=== PATIENT | female | born 1995 | race Caucasian/White ===

== ENCOUNTER 2024-08-28 14:37 | Outpatient (CLI) | payer OTHER, SELFPAY ==
--- NOTE | ~2024-08-28 | US_ITS ---
EXAMINATION: US OB <=14 wk fetus w TV DATE: 08/28/2024 15:49 INDICATION: with inconclusive viability TECHNIQUE: Real-time pelvic ultrasound utilizing both a transvaginal and transabdominal probe was pe rformed. The interpreting radiologist was not present for the study. COMPARISON: None. FINDINGS: The uterus measures 12.0 x 6.6 x 8.8 cm. There is an intrauterine gestational sac. A yolk sac and fe tommy pole are identified. The crown rump length measures 3.2 cm, which correlates with an estimated ge stational age of 9 weeks and 3 days. heart motion is identified measuring 155 beats per minute (bpm) by M-mode Doppler. The right ovary is not visualized. Left ovary measures 5.4 x 3.5 cm and contains a 4.2 x 3.9 x 2.4 cm complex cyst with weblike pattern of multiple thin internal septations with appearance favoring a he morrhagic cyst. Vascular flow identified in the left ovary on color Doppler. There is no free fluid i n the pelvis. IMPRESSION: 1. Single living fetus with heart rate of 155 bpm. 2. Gestational age by ultrasound of 9 weeks 4 day(s) +/- 6 day(s) with ultrasound estimated date of delivery ([facility]) of 03/29/2025. 3. 4.2 cm complex cystic lesion at the left ovary with appearance most suggestive of a hemorrhagic cy st. Recommend follow-up ultrasound in 6-12 weeks. Reviewed, dictated and finalized at location A. ING SUPERVISOR IMPRESSION: 1. Single living fetus with heart rate of 155 bpm. 2. Gestational age by ultrasound of 9 weeks 4 day(s) +/- 6 day(s) with ultraso und estimated date of delivery ([facility]) of 03/29/2025. 3. 4.2 cm complex cystic lesion at the left ovary with appearance most suggesti ve of a hemorrhagic cyst. Recommend follow-up ultrasound in 6-12 weeks.
== END 2024-08-28 14:38 | disposition home or self-care (01) ==
PROVIDERS: Visit Provider Obstetrics & Gynecology Gynecology
DX: O36.80X0 Pregnancy with inconclusive fetal viability, not applicable or unspecified (principal); Z3A.09 9 weeks gestation of pregnancy
CPT/HCPCS: 76801; 76817

== ENCOUNTER 2024-10-31 14:51 | Outpatient (CLI) | payer OTHER, SELFPAY ==
--- NOTE | ~2024-10-31 | US_ITS ---
US pelvic limited Ordering provider: Porsha Pryor MD History: . ovarian cyst . Comparison: September 05, 2024 Technique: Transabdominal and endovaginal ultrasound of the pelvis (Doppler ultrasound interrogation techniques used as needed for this exam.) FINDINGS/impression: LEFT OVARY: Normal in size measuring 3.4 x 3.4 x 3.6 cm. Normal echotexture. Doppler vascular flow pr esent. Septated left ovarian cyst is again demonstrated measuring 2 x 2.9 x 3 cm. Follow-up advised. Reviewed, dictated and finalized at location A.
== END 2024-10-31 14:52 | disposition home or self-care (01) ==
PROVIDERS: Visit Provider Obstetrics & Gynecology Gynecology
DX: N83.202 Unspecified ovarian cyst, left side (principal)
CPT/HCPCS: 76857

== ENCOUNTER 2024-11-21 14:50 | Outpatient (CLI) | payer OTHER, SELFPAY ==
--- NOTE | ~2024-11-21 | US_ITS ---
EXAMINATION: US OB /maternal detail DATE: 11/23/2024 17:50 CDT INDICATION: Anatomy screen TECHNIQUE: Real-time transabdominal obstetric ultrasound. FINDINGS: 1 para 0. There is a single intrauterine gestation in variable presentation. The placenta is anterior, with its tip measuring approximately 3.1 cm from the cervix. The cervix measures 4.3 cm in length. cardiac activity and movement is noted with a heart rate of 159 beats per minute. Anatomic parameters are as follows The bladder is visualized and is unremarkable. A three-vessel cord is present. Cord insertion is demonstrated to be on the midline on the submitted images. Bilateral kidneys are present without hydronephrosis. The anterior and posterior margins of the diaphragm is continuous. The cervical, thoracic and lumbar spines are covered in their entirety. choroid plexi are visualized, and unremarkable. Lateral ventricles are visualized. The falx is visualized. Static views of the posterior cranial fossa are limited for which follow-up is suggested. Cine of the four-chamber heart is visualized and is anatomic. Both the right and left ventricular outflow tracts are identified and are unremarkable. Views of the arms, hands, legs and feet were performed and appear grossly unremarkable. Views of the upper lip and nose confirmed their continuity. Deepest vertical pocket measures 4.3 cm The following biometric data were obtained: Biparietal diameter (BPD): 5.7 cm; head circumference (HC): 19.5 cm; abdominal circumference (AC): 16.9 cm; femur length (FL): 3.7 cm. These measurements are concordant. Estimated weight is 453 g +/- 67.9 g, which correlates with the 49th percentile when 03/26/2025 is used as estimated date of delivery. As single measurements, these parameters are each equal to the following estimated gestational ages: BPD: 23 weeks 3 days. HC: 21 weeks 5 days. AC: 21 weeks 6 days. FL: 21 weeks 4 days. estimated gestational age based solely on measurements from this exam is 22 weeks 1 day +/- 1 w [place] 4 days. IMPRESSION: Single intrauterine gestation with an approximate gestational age of 22 weeks and 1 day. Estimated due date by ultrasound is 03/26/2025. Static views of the posterior cranial fossa are limited for which follow-up is suggested. Remainder of the anatomy scan is within normal limits, as detailed above. Reviewed, dictated and finalized at location A. IMPRESSION: Single intrauterine gestation with an approximate gestational age of 22 weeks a nd 1 day. Estimated due date by ultrasound is 03/26/2025. Static views of the posterior cranial fossa are limited for which follow-up is suggested. Remainder of the anatomy scan is within normal limits, as detailed above.
--- OUTSIDE RECORDS SUMMARY | 2024-11-21 15:06 | XMS_ITS | Clinical Summary ---
Author Organization [facility] craven [facility] Address [address] [place] [address] Care Team Providers Care Polymer Tester Name Role Phone Unavailable Primary Care Provider Unavailabl e Social History Tobacco Use Types Packs/Day Years Used Date Smoking Tobacco: Never Assessed Comments Unknown Sex and Gender Information Value Date Recorded Sex Assigned at Not on file Legal Sex Female 11:49 AM CDT Gender Identity Not on file Sexual Orientation Not on file Plan of Treatment Upcoming Encounters Date Type Department Care Team (Late st Contact Info) Description 12/08/2024 3:00 PM CDT Office Visit [facility] Oncology and Hematology - [place] [address] [facility] [address] [place] [address] Donald Carranza MD [address] [facility] [address] [place] [address] Health Maintenance Due Date Last Done Comments DTAP/TDAP/TD VACCINES (1 - Tdap) 2012 HEPATITIS B VACCINES (1 of 3 - 19+ 3-dose series) 2012 HPV/Cotest (21-29) 2014 CERVICAL CANCER SCREENING 09/14/2023 HPV/Cotest (30-65) 09/14/2023 PAP SMEAR 09/14/2023 INFLUENZA VACCINE (#1) 2024 HPV VACCINES Aged Out No longer eligi ble based on patient's age to complete this topic
== END 2024-11-21 14:51 | disposition home or self-care (01) ==
PROVIDERS: Visit Provider Obstetrics & Gynecology Gynecology
DX: Z36.9 Encounter for antenatal screening, unspecified (principal); Z3A.00 Weeks of gestation of pregnancy not specified
CPT/HCPCS: 76805

== ENCOUNTER 2024-12-08 15:21 | Outpatient (CLI) | payer OTHER, SELFPAY ==
--- OUTSIDE RECORDS SUMMARY | 2024-12-08 15:30 | XMS_ITS | Clinical Summary ---
Author Organization [facility] Onielmelissa herber Harley Address [address] [place] [address] Care Team Providers Care Fiscal Accountant Name Role Phone Unavailable Primary Care Provider Unavailabl e Allergies No known active allergies Medications VIT-IRON FUM-FOLIC AC ORAL Take by mouth. Active omega-3 fatty acids-fish oil 300-1,000 mg Capsule Take by mouth daily. Active CALCIUM CARBONATE-VITAMI N D3 ORAL Take 5,000 Units by mouth daily. Active choline salicyl/mag salicylate (CHOLINE,MAGNESI UM SALICYLATE ORAL) Take by mouth. Active Encounters Date Type Department Care Team Description 12/08/2024 3:00 PM CDT Office Visit [facility] Oncology and Hematology - Andrew [address] [address] Donald Carranza MD Iron overload (Primary Dx) from Last 3 Months Family History Medical History Relation Name Comments No Known Problems Brother Diabetes Father Heart Disease Father No Known Problems Mother Relation Name Status Comments Brother Alive Father Mother Alive Social History Tobacco Use Types Packs/Day Years Used Date Smoking Tobacco: Never Smokeless Tobacco: Never Tobacco Cessation:Counseling Given: Not Answered Alcohol Use Standard Drinks/Week Comments Not Currently 0 (1 standard drink = 0.6 oz pur e alcohol) Comments Unknown Sex and Gender Information Value Date Recorded Sex Assigned at Not on file Legal Sex Female 11:49 AM CDT Gender Identity Not on file Sexual Orientation Not on file Last Filed Vital Signs Vital Sign Reading Time Taken Comments Blood Pressure 116/66 12/08/2024 2:53 PM CDT Pulse 75 12/08/2024 2:53 PM CDT Temperature 36.9 C (98.4 F) 12/08/2024 2:53 PM CDT Respiratory Rate 16 12/08/2024 2:53 PM CDT Oxygen Saturation 98% 12/08/2024 2:53 PM CDT Inhaled Oxygen Concentration - - Weight 86 kg (189 lb 9.6 oz) 12/08/2024 2:53 PM CDT Height 157.5 cm (5' 2) 12/08/2024 2:53 PM CDT Body Mass Index 34.68 12/08/2024 2:53 PM CDT Plan of Treatment Upcoming Encounters Date Type Department Care Team (Late st Contact Info) Description 12/22/2024 4:30 PM CDT Telephone Check Up [facility] Oncology and Hematology - [place] [address] [facility] [address] [place] [address] Donald Carranza MD [address] [facility] [address] [place] [address] Health Maintenance Due Date Last Done Comments DTAP/TDAP/TD VACCINES (1 - Tdap) 2012 HEPATITIS B VACCINES (1 of 3 - 19+ 3-dose series) 2012 HPV/Cotest (21-29) 2014 CERVICAL CANCER SCREENING 09/14/2023 HPV/Cotest (30-65) 09/14/2023 PAP SMEAR 09/14/2023 INFLUENZA VACCINE (#1) 2024 Preventative Visit- Commercial 07/09/2024 HPV VACCINES Aged Out No longer eligi ble based on patient's age to complete this topic Insurance [facility] PRACTITIONER ONLY
--- OUTSIDE RECORDS SUMMARY | 2024-12-08 15:30 | XMS_ITS | Encounter Summary ---
Author Organization [facility] Address [address] [place] [address] Care Team Providers Care Repair Technician Name Role Phone Unavailable Primary Care Provider Unavailabl e Reason for Referral * Laboratory Services (Routine) - Open Specialty Diagnoses / Procedures Referred By Michelle t Referred To Contact Diagnoses Iron overload Procedures HEMOCHROMATOSIS GENOTYPE Donald Carranza MD [address] [facility] [address] [place] [address] Phone: tel: fax: Referral ID Status Reason Start Date Expiration Date Visits Re quested Visits Authorized [id number] Open 12/08/2024 01/08/2026 1 1 Encounter Details Date Type Department Care Team (Late st Contact Info) Description 12/08/2024 3:00 PM CDT Office Visit [facility] Oncology and Hematology - Andrew [address] [place] [address] Donald Carranza MD [facility] [address] [place] [address] Iron overload (Primary Dx) Social History Tobacco Use Types Packs/Day Years [...] on file Sexual Orientation Not on file documented as of this encounter Last Filed Vital Signs Vital Sign Reading [...] Mass Index 34.68 12/08/2024 2:53 PM CDT documented in this encounter Plan of Treatment Upcoming Encounters Date Type Department Care Team (Late st Contact Info) Description 12/22/2024 4:30 PM CDT Telephone Check Up [facility] Oncology and Hematology - [place] [address] [facility] [address] [place] [address] Donald Carranza MD [address] [facility] [address] [place] [address] Scheduled Orders Name Type Priority Associated Diagnoses Orde r Schedule CBC WITH DIFFERENTIAL Lab Stat Iron overload Expected: 12/08/2024, Expires: 12/08/2025 COMPREHENSIVE METABOLIC PANEL Lab Stat Iron overload Expected: 12/08/2024, Expires: 12/08/2025 FERRITIN Lab Routine Iron overload Expected: 12/08/2024, Expires: 12/08/2025 IRON, TIBC, AND PERCENT SATURATION Lab Routine Iron overload Expected: 12/08/2024, Expires: 12/08/2025 HEMOCHROMATOSIS GENOTYPE Lab Routine Iron overload Ordered: 12/08/2024 C-REACTIVE PROTEIN Lab Routine Iron overload Expected: 12/08/2024, Expires: 12/08/2025 documented as of this encounter Visit Diagnoses Diagnosis Iron overload- Primary Other disorders of iron metabolism documented in this encounter
[2024-12-08 15:33] LABS: Basophils Percent Auto 0.3 % (0.2-1.2); Eosinophils Absolute Auto 0.2 K/mm3 (0-0.3); Eosinophils Percent Auto 1.7 % (0-4.4); Hemoglobin 12.1 g/dL (12.0-15.0); Immature Granulocyte Absolute 0.03 K/mm3 (0.00-0.031); Immature Granulocyte Percent A 0.3 % (0-0.5); Lymphocytes Absolute Auto 2.21 K/mm3 (0.9-3.2); Lymphocytes Percent Auto 22.1 % (18.3-44.2); Mean Corpuscular HGB Conc 33.6 g/dl (32-36); Mean Corpuscular Volume 95.2 fl (80-100); Mean Platelet Volume 9.8 fl (7.4-10.4); Monocytes Absolute Auto 0.8 K/mm3 (0.1-0.6); Monocytes Percent Auto 7.5 % (2.6-8.5); Neutrophils Absolute Auto 6.8 K/mm3 (1.3-6.7); Neutrophils Percent Auto 68.1 % (45.5-73.1); Platelet Count Result 262 k/mm3 (150-375); Red Blood Count 3.78 M/mm3 (4.2-5.4); Red Cell Distribution Width 12.3 % (11.5-14.5)
[2024-12-08 17:06] LABS: Iron 87 ug/dL (37-170)
[2024-12-08 17:11] LABS: Alanine Aminotransferase 31 U/L (6-35); Albumin Level 3.7 g/dL (3.5-5.1); Alkaline Phosphatase 49 U/L (38-126); Anion Gap 4 mmol/L (4-12); Aspartate Amino Transferase 46 U/L (14-36); Bilirubin,Total 0.3 mg/dL (0.2-1.3); Blood Urea Nitrogen 16 mg/dL (7-17); CRP < 0.5 mg/dL (<1.0); Calcium 9.6 mg/dL (8.4-10.2); Carbon Dioxide 27 mmol/L (22-30); Chloride 101 mmol/L (98-107); Estimated Glomerular Filt Rate > 60; Glucose 82 mg/dL (65-110); Sodium 132 mmol/L (137-145)
[2024-12-08 17:19] LABS: Percent Iron Saturation 24 % (20-50)
== END 2024-12-08 15:22 | disposition home or self-care (01) ==
LOC: ANHLAB 15:21
PROVIDERS: Visit Provider Internal Medicine Hematology & Oncology
DX: E83.19 Other disorders of iron metabolism (principal)
CPT/HCPCS: 36415; 80053; 81256; 82728; 83540; 83550; 85025; 86140

== ENCOUNTER 2024-12-24 15:01 | Outpatient (CLI) | payer OTHER, SELFPAY ==
--- NOTE | ~2024-12-24 | US_ITS ---
EXAMINATION: US OB follow up DATE: 12/24/2024 22:17 CDT INDICATION: Follow-up anatomy scan TECHNIQUE: Real-time transabdominal obstetric ultrasound. FINDINGS: 1 para 0 There is a single intrauterine gestation in vertex presentation. The placenta is anterior. The tip of the placenta measures 5 cm from the opening of the internal cervical os. The cervix measures 4.7 cm in length on the submitted images. cardiac activity and movement is noted with a heart rate of 124 beats per minute. Anatomic parameters are as follows The falx is visualized. The cerebellum is visualized measuring 26.3 mm, and is sonographically unremarkable. The cisterna magna measures 4.5 mm in anterior to posterior dimension (normal measurement is 2 to 10 mm). The following biometric data were obtained: Biparietal diameter (BPD): 6.2 cm; head circumference (HC): 25 cm; abdominal circumference (AC): 22 cm; femur length (FL): 4.8 cm. These measurements are concordant. Estimated weight is 943 g +/- 141 g, which correlates with the 41st percentile when 03/30/2025 i s used as estimated date of delivery. As single measurements, these parameters are each equal to the following estimated gestational ages: BPD: 25 weeks 2 days. HC: 26 weeks 4 days. AC: 26 weeks 6 days. FL: 26 weeks 1 day. estimated gestational age based solely on measurements from this exam is 26 weeks 2 days +/- 1 week 6 days. IMPRESSION: Single intrauterine gestation with an approximate gestational age of 26 weeks and 2 days. Estimated d ue date by ultrasound is 03/30/2025. The posterior cranial fossa is unremarkable, as detailed above. This concludes the entirety of the anatomy scan, which is within normal limits. Reviewed, dictated and finalized at location A. IMPRESSION: Single intrauterine gestation with an approximate gestational age of 26 weeks a nd 2 days. Estimated due date by ultrasound is 03/30/2025. The posterior cranial fossa is unremarkable, as detailed above. This concludes the entirety of the anatomy scan, which is within normal limits.
--- OUTSIDE RECORDS SUMMARY | 2024-12-24 16:56 | XMS_ITS | Clinical Summary ---
Author Organization [facility] Sarah craven [place] Address [address] [place] [address] Care Team Providers Care Supervisor [place] Repair Name Role Phone Unavailable Primary Care Provider Unavailabl e Allergies No known active allergies Medications VIT-IRON FUM-FOLIC AC ORAL Take by mouth. Active omega-3 fatty acids-fish oil 300-1,000 mg Capsule Take by mouth daily. Active CALCIUM CARBONATE-VITAMI N D3 ORAL Take 5,000 Units by mouth daily. Active choline salicyl/mag salicylate (CHOLINE,MAGNESI UM SALICYLATE ORAL) Take by mouth. Active Active Problems No known active problems Encounters Date Type Department Care Team Description 12/22/2024 4:30 PM CDT Telephone Check Up [facility] Oncology and Hematology - [place] [address] [place] [address] Donald Carranza MD Iron overload (Primary Dx) 12/17/2024 Orders Only [facility] Oncology and Hematology - [place] [address] [place] [address] Donald Carranza MD 12/12/2024 Orders Only [facility] Oncology and Hematology - [place] [address] [place] [address] Donald Carranza MD 12/09/2024 External Device Data STL ABSTRACTION Provider, Abstract 12/09/2024 External Device Data STL ABSTRACTION Provider, Abstract 12/09/2024 External Device Data STL ABSTRACTION Provider, Abstract 12/08/2024 3:00 PM CDT Office Visit [facility] Oncology and Hematology - [place] [address] [place] [address] Donald Carranza MD Iron overload (Primary [...] Care Team (Late st Contact Info) Description 04/24/2025 11:00 AM CDT Office Visit [facility] Oncology and Hematology - [place] [address] [place] [address] Donald Carranza MD [address] [facility] [address] [place] [address] Health Maintenance Due Date Last Done Comments DTAP/TDAP/TD VACCINES (1 - Tdap) 2012 HEPATITIS B VACCINES (1 of 3 - 19+ 3-dose series) 2012 HPV/Cotest (21-29) 2014 CERVICAL CANCER SCREENING 09/14/2023 HPV/Cotest (30-65) 09/14/2023 PAP SMEAR 09/14/2023 INFLUENZA VACCINE (#1) 2024 Preventative Visit- Commercial 07/09/2024 HPV VACCINES Aged Out No longer eligi ble based on patient's age to complete this topic Procedures Procedure Name Priority Date/Time Associated Diagnosis Comments HEREDITARY HEMOCHROMATOSIS DNA MUTATION ANALYSIS Routine 12/08/2024 3:40 PM CDT IRON PANEL Routine 12/08/2024 12:39 PM CDT CBC WITH DIFFERENTIAL Routine 12/08/2024 12:31 PM CDT from Last 3 Months Results * HEREDITARY HEMOCHROMATOSIS DNA MUTATION ANALYSIS (12/08/2024 3:40 PM CDT) us Donald Carranza MD CHEMISTRY ORDERABLES COM Final Result * IRON PANEL (12/08/2024 12:39 PM CDT) Blood us Donald Carranza MD CHEMISTRY ORDERABLES Final Resu lt * CBC WITH DIFFERENTIAL (12/08/2024 12:31 PM CDT) Blood us Donald Carranza MD HEMATOLOGY ORDERABLES Final Res ult from Last 3 Months Insurance [facility] PRACTITIONER ONLY
--- OUTSIDE RECORDS SUMMARY | 2024-12-24 16:56 | XMS_ITS | Encounter Summary ---
Author Organization [facility] [place] [facility] Address [address] [place] [address] Care Team Providers Care Shovel Handle Assembler Name Role Phone Unavailable Primary Care Provider Unavailabl e Encounter Details Date Type Department Care Team (Late Contact Info) Description 12/17/2024 Orders Only [facility] Oncology and Hematology [place] [address] [place] [address] Donald Carranza MD [facility] [employer] [address] [place] [address] Social History Tobacco Use Types Packs/Day Years Used Date Smoking Tobacco: Never Smokeless Tobacco: Never Alcohol Use Standard Drinks/Week Comments Not Currently 0 (1 standard drink = 0.6 oz pur e alcohol) Comments Unknown Sex and Gender Information Value Date Recorded Sex Assigned at Not on file Legal Sex Female 11:49 AM CDT Gender Identity Not on file Sexual Orientation Not on file documented as of this encounter Plan of Treatment Upcoming Encounters Date Type Department Care Team ([facility] Contact Info) Description 04/24/2025 11:00 AM CDT Office Visit [facility] Oncology and Hematology - [place] [address] [place] [address] Donald Carranza MD [address] [employer] [address] [place] [address] documented as of this encounter Procedures Procedure Name Priority Date/Time Associated Diagnosis Comments HEREDITARY HEMOCHROMATOSIS DNA MUTATION ANALYSIS Routine 12/08/2024 3:40 PM CDT documented in this encounter Results * HEREDITARY HEMOCHROMATOSIS DNA MUTATION ANALYSIS (12/08/2024 3:40 PM CDT) us Donald Carranza MD CHEMISTRY ORDERABLES COM Final Result documented in this encounter Visit Diagnoses Not on filedocumented in this encounter
--- OUTSIDE RECORDS SUMMARY | 2024-12-24 16:56 | XMS_ITS | Encounter Summary ---
Author Organization [facility] Address [address] [place] [address] Care Team Providers Care Technical Instructor Course Developer Name Role Phone Unavailable Primary Care Provider Unavailabl e Encounter Details Date Type Department Care Team (Late st Contact Info) Description 12/22/2024 4:30 PM CDT Telephone Check Up [facility] Oncology and Hematology - Andrew [address] [facility] [address] [place] [address] Donald Carranza MD [address] [facility] [address] [place] [address] Iron overload (Primary Dx) Social History [...] on file documented as of this encounter Progress Notes * Donald Carranza MD - 12/22/2024 6:09 PM CDT HEMATOLOGY / ONCOLOGY PROGRESS NOTE Patient Identification: Name: Hyacinth Dent Age: 29 y.o. Sex: female : 1995 DIAGNOSIS Hereditary hemochromatosis with H63D heterozygous state CURRENT TREATMENT Expectant TREATMENT HISTORY SUBJECTIVE This is a phone visit with patient. She has no new complaint since the last visit. Review of system Constitutional: Patient did not mention fevers, sweats, fatigue, malaise, weight loss HEENT: Patient did not mention sinus congestion, hearing or vision problems Respiratory: Patient did not mention cough, dyspnea, wheeze Cardiovascular: Patient did not mention chest pain, exertional chest pressure/discomfort, nausea, syncope, shortness of breath GI: Patient did not mention constipation, diarrhea, dsyphagia, reflux symptoms, vomiting, melena : Patient did not mention dysuria, frequency, incontinence, urgency Integumentary system: no lymphadenopathy, sweats, flushing Musculoskeletal: Patient not mention: myalgia, arthralgia Neurological: Patient did not mention blurry or disturbed vision, numbness/weakness, dizziness Skin: No lumps, bumps or rashes. Objective: Vital signs in last 24 hours: As per nursing note Exam: This is a phone visit [facility] Labs from December 08 showed AST 46 hemoglobin 12.1 iron 87 saturation 24 ferritin 25.2 @IMAGEIMP@ Assessment: Plan: There are no active problems to display for this patient. Hereditary hemochromatosis with H63D heterozygous state. Labs discussed with the patient. Iron and ferritin is normal. No need for phlebotomy. She will continue to avoid iron containing food and ironsupplements. She will also avoid alcohol. I will repeat labs again in 4 months. ? TOBACCO COUNSELING She is not a tobacco/nicotine user. 12/22/2024 Patient's identity confirmed yes Patient gave verbal consent to have these services billed to their insurance and expressed understanding that co-insurance and deductible may apply: yes Patient was located at home. This encounter was completed via two-way synchronous audio only communication. Video technology available to provider, but patient not capable of, or doesn't consent to, use of video. Time spent in discussion with patient: 15 minutes. Donald Carranza MD documented in this encounter Plan of Treatment Upcoming Encounters Date Type Department Care Team (Late st Contact Info) Description 04/24/2025 11:00 AM CDT Office Visit [facility] Oncology and Hematology - [place] [address] [facility] [address] [place] [address] Donald Carranza MD [address] [facility] [address] [place] [address] Scheduled Orders Name Type Priority Associated Diagnoses Orde r Schedule CBC WITH DIFFERENTIAL Lab Stat Iron overload Expected: 04/13/2025, Expires: 12/22/2025 COMPREHENSIVE METABOLIC PANEL Lab Stat Iron overload Expected: 04/13/2025, Expires: 12/22/2025 FERRITIN Lab Routine Iron overload Expected: 04/13/2025, Expires: 12/22/2025 IRON, TIBC, AND PERCENT SATURATION Lab Routine Iron overload Expected: 04/13/2025, Expires: 12/22/2025 documented as of this encounter Visit Diagnoses Diagnosis Iron overload- Primary Other disorders of iron metabolism documented in this encounter
== END 2024-12-24 15:02 | disposition home or self-care (01) ==
PROVIDERS: Visit Provider Obstetrics & Gynecology Gynecology
DX: Z34.92 Encounter for supervision of normal pregnancy, unspecified, second trimester (principal); Z3A.26 26 weeks gestation of pregnancy
CPT/HCPCS: 76816

== ENCOUNTER 2025-01-16 17:16 | Observation (INO) | payer OTHER, SELFPAY ==
[2025-01-16] VITALS (10 sets, daily range): BP systolic 116–131; BP diastolic 66–72; PULSE 81–97; O2SAT 96–99; BMI 35.4
--- NOTE | ~2025-01-16 | XR_ITS ---
XR chest 2V Ordering provider: Errol Anderson MD History: 29 years Female with . abdominal shield for right upper quadrant pain . Comparison: None. FINDINGS: MEDIASTINUM: The cardiac silhouette is not enlarged. LUNGS: No infiltrates, effusions or pneumothorax. OTHER: No free air under the diaphragm. IMPRESSION: No acute cardiopulmonary pathology. Reviewed, dictated and finalized at location A.
--- NOTE | 2025-01-16 17:16 | LDADM ---
This patient, Hyacinth Dent, was admitted to OB Post 117 on 01/16/25 at 17:16. Plans for labor, pain management and were discussed with patient. Patient/family oriented to hospital policies and general routines including ID bracelet, bed and alarms, visiting hours, pain management, procedures, bathroom and other care routines, personal items, smoking policy, room service/diet and guest tray routines, infant security routines, and visiting hours. Patient/Family are encouraged to report perceived risks to care and to ask questions if they do not understand what they are told or what they should do. See OBIX for further documentation.
--- OUTSIDE RECORDS SUMMARY | 2025-01-16 17:21 | XMS_ITS | Clinical Summary ---
Author Organization [facility] (Formerly [facility]) Sarah craven [place] Address [address] [place] [address] Care Team Providers Care Field Service Representative Name Role Phone Unavailable Primary Care Provider [...] Encounters Date Type Department Care Team Description 01/06/2025 External Device Data STL ABSTRACTION Provider, Abstract 12/22/2024 4:30 PM CDT Telephone Check Up [facility] ([facility] Oncology and Hematology - Andrew [address] [place] [id number] Donald Carranza MD Iron overload (Primary Dx) 12/17/2024 Orders Only [facility] ([facility] Oncology and Hematology - Andrew Mally [address] [place] [address] Donald Carranza MD 12/12/2024 Orders Only [facility] Oncology and Hematology - Andrew Mally [address] [place] [address] Donald Carranza MD 12/09/2024 External Device Data STL ABSTRACTION Provider, Abstract 12/09/2024 External Device Data STL ABSTRACTION Provider, Abstract 12/09/2024 External Device Data STL ABSTRACTION Provider, Abstract 12/08/2024 3:00 PM CDT Office Visit [facility] ([facility] Oncology and Hematology - [address] [place] [address] Donald Carranza MD Iron overload [...] Description 04/24/2025 11:00 AM CDT Office Visit [facility] ([facility] Oncology and Hematology - [address] [place] [address] Donald Carranza MD [id number] [facility] [address] [place] [address] Health Maintenance Due Date Last Done Comments DTAP/TDAP/TD VACCINES (1 - Tdap) 2012 HEPATITIS B VACCINES (1 of 3 - 19+ 3-dose series) 2012 HPV/Cotest (21-29) 2014 CERVICAL CANCER SCREENING 09/14/2023 HPV/Cotest (30-65) 09/14/2023 PAP SMEAR 09/14/2023 INFLUENZA VACCINE (#1) 2025 HPV VACCINES Aged Out No longer eligi [...] Res ult from Last 3 Months Insurance [facility] PRACTITIONER ONLY
--- NOTE | 2025-01-16 17:35 | PC.NURSE ---
The pt reports that she has been seeing Dr. Pryor during her .Pt states that she has been dealing with pain in her right upper quadrant pain for about 4 weeks. She said she remembers sitting in a chair at work and turning to put something on her desk and felt this pain after that happen. She said the pain is always there and describes it as dull with time that its sharp. She has tried several things including ice, rest, tylenol and seeing a chiropractor. pt states that those give her minimal relief at times. Dr. Pryor is aware of the pt having this abdominal pain and that several test have been ran. The pt reports that she had a gallbladder and liver workup recently with no findings.
--- NOTE | 2025-01-16 17:45 | PC.NURSE ---
Dr. Lavelle Anderson notified of pt presenting with right upper quadrant pain. Order received for CMP, CBC w/diff, Amylase, Lipase, chest xray with abdominal shield. Check pulse o2. Once NST is reactive can discontinue monitoring.
[2025-01-16 18:09] LABS: Hematocrit 33.2 % (37.0-47.0); Hemoglobin 11.1 g/dL (12.0-15.0); Immature Granulocyte Percent A 0.7 % (0-0.5); Lymphocytes Absolute Auto 2.09 K/mm3 (0.9-3.2); Mean Corpuscular HGB Conc 33.4 g/dl (32-36); Mean Corpuscular Hemoglobin 31.6 pg (26-34); Mean Corpuscular Volume 94.6 fl (80-100); Nucleated Red Blood Cells Absolute Auto 0.000 K/mm3 (0.0-0.012); Nucleated Red Blood Cells Perc 0.0 % (0.0-0.2); Platelet Count Result 222 k/mm3 (150-375); Red Blood Count 3.51 M/mm3 (4.2-5.4); White Blood Count 9.1 K/mm3 (4.5-10.0)
[2025-01-16 18:33] LABS: Alanine Aminotransferase 35 U/L (6-35); Albumin Level 3.4 g/dL (3.5-5.1); Alkaline Phosphatase 59 U/L (38-126); Amylase 59 U/L (30-110); Anion Gap 7 mmol/L (4-12); Aspartate Amino Transferase 33 U/L (14-36); Bilirubin,Total 0.3 mg/dL (0.2-1.3); Blood Urea Nitrogen 15 mg/dL (7-17); Calcium 9.1 mg/dL (8.4-10.2); Carbon Dioxide 24 mmol/L (22-30); Chloride 105 mmol/L (98-107); Estimated CRCL calculation 109 ml/min; Estimated Glomerular Filt Rate > 60; Glucose 92 mg/dL (65-110); Lipase 99 U/L (23-300); Potassium 3.6 mmol/L (3.4-5.0); Sodium 136 mmol/L (137-145); Total Protein 6.3 g/dL (6.3-8.2)
--- NOTE | 2025-01-16 18:40 | PC.NURSE ---
Lavelle Anderson updated on labs, chest xray, 02 sat, and NST. Order received for 10mg Flexeril x 1 and watch for 1 hour.
[2025-01-16] MEDS: CYCLOBENZAPRINE HCL 10 MG TABLET PO (18:52)
--- NOTE | 2025-01-16 19:00 | PC.NURSE ---
1852- RN discussed POC with patient and results of xray and labs. Pt agreeable to Flexeril administration. Pt educated on purpose of flexeril and potential side effects. verbalizes understanding.
--- NOTE | 2025-01-16 19:58 | PC.NURSE ---
194- RN paged Dr. Lavelle Anderson 1942- MD returned page. RN reported pts decrease in pain level and desire for discharge. Order received for discharge and rx to be transmitted.
--- NOTE | 2025-01-16 20:07 | PM.OBTRLD ---
OB - Triage/Final Diagnosis Visit Information Date of evaluation: 01/16/25 Reason for evaluation: other (Abdominal pain) Comments/Additional reasons for admission: I have assessed the risk for this patient, Hyacinth Dent, and determined that she would benefit from observation care. Evaluation Laboratory results: Laboratory Tests 01/16/25 17:54 WBC 9.1 RBC 3.51 L Hgb 11.1 L Hct 33.2 L MCV 94.6 MCH 31.6 MCHC 33.4 RDW 12.3 Plt Count 222 MPV 10.1 Immature Gran % (Auto) 0.7 H Neut % (Auto) 65.7 Lymph % (Auto) 23.0 [place] % (Auto) 8.8 H Eos % (Auto) 1.5 Baso % (Auto) 0.3 Lymph # (Auto) 2.09 [place] # (Auto) 0.8 H Eos # (Auto) 0.1 Baso # (Auto) 0.0 Abs Immat Gran (auto) 0.06 H Absolute Neuts (auto) 6.0 Absolute Nucleated RBC 0.000 Nucleated RBC % 0.0 Sodium 136 L Potassium 3.6 Chloride 105 Carbon Dioxide 24 Anion Gap 7 BUN 15 Creatinine 0.66 L Estim Creat Clear Calc 109 Estimated GFR > 60 Glucose 92 Calcium 9.1 Total Bilirubin 0.3 AST 33 ALT 35 Alkaline Phosphatase 59 Total Protein 6.3 Albumin 3.4 L Amylase 59 Lipase 99 Vital signs: Vital Signs - 24 hr 01/16/25 17:38 01/16/25 17:46 01/16/25 18:00 Pulse Rate 81 87 Blood Pressure 131/72 116/66 Blood Pressure [Left Arm] Pulse Oximetry 96 Oxygen Delivery 01/16/25 18:00 01/16/25 18:20 01/16/25 18:25 Pulse Rate 85 Blood Pressure Blood Pressure [Left Arm] 116/66 Pulse Oximetry 97 98 Oxygen Delivery 01/16/25 18:30 01/16/25 18:35 01/16/25 18:40 Pulse Rate Blood Pressure Blood Pressure [Left Arm] Pulse Oximetry 98 99 99 Oxygen Delivery 01/16/25 18:45 01/16/25 18:50 01/16/25 18:50 Pulse Rate Blood Pressure Blood Pressure [Left Arm] Pulse Oximetry 99 98 Oxygen Delivery Room Air
== END 2025-01-16 19:56 | disposition home or self-care (01) ==
PROVIDERS: Admitting Provider Obstetrics & Gynecology; Visit Provider Obstetrics & Gynecology
DX: O26.893 Other specified pregnancy related conditions, third trimester (principal); R10.9 Unspecified abdominal pain; Z3A.29 29 weeks gestation of pregnancy
CPT/HCPCS: 36415; 59025; 71046; 80053; 82150; 83690; 85025; A9270; G0378; G0379

== ENCOUNTER 2025-02-27 12:01 | Outpatient (RCR) | payer OTHER, SELFPAY ==
--- NOTE | 2024-12-05 14:58 | PC.NURSE ---
Pt. came in for decreased movement. FHR reactive on tracing. Called Dr. Ross (surgical oncologist for Dr. Pryor) at [phone]. Dr. Ross returned call at [phone]- discussed reactive tracing, pt. marking adequate movement, and BP 118/68. Pt. is ok to dc. Keep next scheduled apt. with Dr. Pryor. Pt. given kick count handout and educated on signs of labor.
[2024-12-05 15:11] VITALS: BP 118/68; PULSE 69
[2025-02-27 13:13] VITALS: BP 119/72; PULSE 84
== END 2025-03-05 23:59 | disposition home or self-care (01) ==
LOC: ANHOBOP 12:01
PROVIDERS: Visit Provider Obstetrics & Gynecology Gynecology
DX: O36.8130 Decreased fetal movements, third trimester, not applicable or unspecified (principal); Z3A.23 23 weeks gestation of pregnancy; O26.893 Other specified pregnancy related conditions, third trimester; Z3A.35 35 weeks gestation of pregnancy
CPT/HCPCS: 59025

== ENCOUNTER 2025-03-22 12:38 | Observation (INO) | payer OTHER, SELFPAY ==
[2025-03-22] VITALS (11 sets, daily range): BP systolic 99–111; BP diastolic 65–74; PULSE 83–96; O2SAT 98–100; BMI 37.5
--- NOTE | ~2025-03-22 | US_ITS ---
EXAMINATION: US OB limited w BPP DATE: 03/22/2025 16:11 INDICATION: Contractions with discharge. Third trimester. TECHNIQUE: Real-time pelvic ultrasound was performed. COMPARISON: Ultrasound 12/24/2024 FINDINGS: There is a single living fetus in vertex presentation. The placenta is anterior. heart rate is 137 beats per minute (bpm). The amniotic fluid index is 6.5 cm, which is low (5th percentile is 7.0 cm). Biophysical profile performed by the technologist: breathing (30 sec sustained breathing in 30 minutes): 2 out of 2 movement (3 gross body movements in 30 minutes): 2 out of 2 tone (one episode of qjdeklz-rhraeowrt-blwrrpo limb movement): 2 out of 2 Amniotic fluid pocket (2 cm): 2 out of 2 Total score: 8 out of 8 IMPRESSION: 1. Single living fetus in vertex presentation. 2. Biophysical profile 8 out of 8. 3. Oligohydramnios. Reviewed, dictated and finalized at location E.
[2025-03-22 15:19] LABS: Add Urine Microscopic? YES; Appearance Urine Turbid (Clear); Glucose Urine UA Negative (Negative); Leukocyte Esterase Ur 1+ LEU/UL (Negative); Need Manual Microscopic Reviewed; Nitrate Urine Negative (Negative); Non Pathogenic Casts 0-2; Specific Grav Ur 1.014 (1.001-1.035)
--- NOTE | 2025-03-25 07:03 | PM.OBTRLD ---
OB - Triage/Final Diagnosis Visit Information Reason for evaluation: threatened labor Comments/Additional reasons for admission: I have assessed the risk for this patient, Hycainth Dent, and determined that she would benefit from observation care. Evaluation Laboratory results: Laboratory Tests 03/22/25 14:59 Urine Color Yellow Urine Appearance Turbid H Urine pH 6.5 Ur Specific [employer] 1.014 Urine Protein 1+ H Urine Glucose (UA) Negative Urine Ketones Negative Ur Blood (Man) 3+ H Urine Nitrate Negative Urine Bilirubin Negative Urine Urobilinogen 1.0 Add Ur Microanalysis Reviewed Leukocyte Esterase Rfl 1+ H Urine RBC >100 H Urine WBC 6-10 H Ur Squamous Epith Cells Many H Urine Bacteria 2+ H Urine Casts 0-2
== END 2025-03-22 16:45 | disposition home or self-care (01) ==
PROVIDERS: Admitting Provider Obstetrics & Gynecology; Visit Provider Obstetrics & Gynecology
DX: O47.9 False labor, unspecified (principal); Z3A.00 Weeks of gestation of pregnancy not specified
CPT/HCPCS: 76815; 76819; 81001; G0378; G0379; J2785

== ENCOUNTER 2025-03-22 18:53 | Observation (INO) | payer OTHER, SELFPAY ==
[2025-03-22 22:01] VITALS: BMI 36.3
--- NOTE | 2025-03-22 22:02 | LDADM ---
This patient, Hyacinth Dent, was admitted to Labor/Delivery/Recovery 102 on 03/22/25 at 18:53. Plans for labor, pain management and were discussed with patient. Patient/family oriented to hospital policies and general routines including ID bracelet, bed and alarms, visiting hours, pain management, procedures, bathroom and other care routines, personal items, smoking policy, room service/diet and guest tray routines, security routines, and visiting hours. Patient/Family are encouraged to report perceived risks to care and to ask questions if they do not understand what they are told or what they should do. See OBIX for further documentation.
[2025-03-22] MEDS: MORPHINE SULFATE INJ (*CRX) 10 MG/ML AMP IM (22:12)
--- NOTE | 2025-03-22 22:21 | PC.NURSE ---
Talked to Dr. Lavelle Anderson at 2735 orders to Dc this patient and to give her 10 of IM morphine before Dc
--- NOTE | 2025-03-25 07:04 | PM.OBTRLD ---
OB - Triage/Final Diagnosis Visit Information Reason for evaluation: threatened labor Comments/Additional reasons for admission: I have assessed the risk for this patient, Hyacinth Fredrick Filipe, and determined that she would benefit from observation care.
== END 2025-03-22 22:20 | disposition home or self-care (01) ==
PROVIDERS: Admitting Provider Obstetrics & Gynecology; Visit Provider Obstetrics & Gynecology
DX: O47.1 False labor at or after 37 completed weeks of gestation (principal); Z3A.39 39 weeks gestation of pregnancy
CPT/HCPCS: 96374; G0378; G0379; J2270

== ENCOUNTER 2025-03-23 11:46 | Inpatient (IN) | payer OTHER, SELFPAY ==
[2025-03-23] VITALS (169 sets, daily range): BP systolic 86–156; BP diastolic 49–104; PULSE 54–132; TEMP 36.5–37.3; O2SAT 89–100; BMI 37.5
--- NOTE | 2025-03-23 11:46 | LDADM ---
This patient, Hyacinth Dent, was admitted to Labor/Delivery/Recovery 105 on 03/23/25 at 11:46. Plans for labor, pain management and were discussed with patient. Patient/family oriented to hospital policies and general routines including ID bracelet, bed and alarms, visiting hours, pain management, procedures, bathroom and other care routines, personal items, smoking policy, room service/diet and guest tray routines, security routines, and visiting hours. Patient/Family are encouraged to report perceived risks to care and to ask questions if they do not understand what they are told or what they should do. See OBIX for further documentation.
[2025-03-23] MEDS: LACTATED RINGERS 1,000 ML 125 ML IV CONT ×3 (13:37→23:51)
[2025-03-23 13:43] LABS: Hematocrit 36.8 % (37.0-47.0); Hemoglobin 12.9 g/dL (12.0-15.0); Immature Granulocyte Percent A 0.5 % (0-0.5); Lymphocytes Absolute Auto 1.89 K/mm3 (0.9-3.2); Mean Corpuscular HGB Conc 35.1 g/dl (32-36); Mean Corpuscular Hemoglobin 32.3 pg (26-34); Mean Corpuscular Volume 92.2 fl (80-100); Nucleated Red Blood Cells Absolute Auto 0.000 K/mm3 (0.0-0.012); Nucleated Red Blood Cells Perc 0.0 % (0.0-0.2); Platelet Count Result 235 k/mm3 (150-375); Red Blood Count 3.99 M/mm3 (4.2-5.4); White Blood Count 13.0 K/mm3 (4.5-10.0)
[2025-03-23] MEDS: fentaNYL CITRATE INJ (*CRX) 100 MCG/2 ML VIAL IV PUSH (14:27)
[2025-03-23 14:30] LABS: Syphilis IgG/IgM Antibody Non-Reactive (Nonreactive)
--- NOTE | 2025-03-23 15:11 | WPDOBADMIT ---
Obstetrics - Admit Note Admission Note: record reviewed. No pertinent additions to the history and/or any subsequent changes in the physical findings that are not consistent with the expected course of the were found. Additions to the history and/or subsequent changes in the physical findings follow. Here with spontaneous rupture of membranes and early labor at 39 weeks. Cervix 2cm. heart tones category 1. Will augment with Pitocin if needed.
[2025-03-23] MEDS: OXYTOCIN 30 UNITS/NS 500 ML 30 UNITS/500 ML BAG IV CONT (15:55)
--- NOTE | 2025-03-23 16:49 | PM.OBPNLAB ---
Pain Control Date/time seen: 03/23/25 16:49 Pain control: epidural Pelvic Exam Dilation (cm): 4 Effacement (%): 80 station: -2 Amniotic membrane status: Leaking (Forebag ruptured) Contractions Monitor mode: Internal (IUPC just placed) Status status: Category l
[2025-03-23] MEDS: ONDANSETRON INJ 4 MG/2 ML VIAL IV PUSH (19:43)
[2025-03-24] VITALS (65 sets, daily range): BP systolic 96–144; BP diastolic 62–118; PULSE 86–140; RESP 16–20; TEMP 36.5–37.1; O2SAT 75–100
--- NOTE | 2025-03-24 02:16 | PM.OBPRVD ---
OB - Vaginal Delivery Note Procedure Delivery date: 03/24/25 Induction method: None Delivery augmentation: Pitocin Delivery monitor: External FHT and Internal Uterine Route of delivery: Episiotomy description: None Laceration Description: Perineal - 2nd Degree (complex-vaginal Y and external midline and then up bilateral lower labia) Delivery repair: vicryl (3-0) Specimen: Yes (placenta) Quantitative Blood Loss (ml): 100 Anesthesia type: Epidural Disposition: Floor Complications: No immediate complications [place] Baby Date of : 03/24/25 Gestational Age by Date: 39 gender: Male Weight (pounds): 7 Weight (ounces): 5 presentation: vertex position: Right Occiput Anterior Placenta delivery description: Spontaneous Cord Vessel Description: 3 Vessels and Delayed Cord Clamping (30 sec) score one minute: 7 score five minutes: 8 Narrative: meconium noted behind
--- NOTE | 2025-03-24 02:18 | P.DS_ITS ---
DS: Admitting Diagnosis Discharge Date 03/25/25 Admitting Diagnosis SROM in labor 39 wks DS: Discharge Diagnosis Discharge Diagnosis (1) (normal spontaneous vaginal delivery): Code(s): O80 - Encounter for full-term uncomplicated delivery Status: Acute OB - DS: Summary OB Procedures : Ultrasound OB Procedures Intrapartum: Spontaneous Vag Delivery OB Procedures: : None Peripartum Data Infant Delivery Method: Natural Vaginal Laceration Description: Perineal - 2nd Degree (complex-vaginal Y and external midline and then up bilateral lower labia) Episiotomy description: None complications: none Status at Discharge Functional status at discharge: independent ambulation Overall status at discharge: patient is progressing back to baseline Time Spent with Patient Time attestation: Total time spent providing and/or coordinating discharge services: DS: Data Data Completed and Pending Labs on day of discharge: Labs from last 24 hours 03/23/25 13:05 WBC 13.0 H RBC 3.99 L Hgb 12.9 Hct 36.8 L MCV 92.2 MCH 32.3 MCHC 35.1 RDW 12.4 Plt Count 235 MPV 10.7 H Immature Gran % (Auto) 0.5 Neut % (Auto) 76.2 H Lymph % (Auto) 14.5 L [place] % (Auto) 8.1 Eos % (Auto) 0.5 Baso % (Auto) 0.2 Lymph # (Auto) 1.89 [place] # (Auto) 1.1 H Eos # (Auto) 0.1 Baso # (Auto) 0.0 Abs Immat Gran (auto) 0.07 H Absolute Neuts (auto) 9.9 H Absolute Nucleated RBC 0.000 Nucleated RBC % 0.0 Syphilis IgG/IgM Ab Non-reactive Blood Type A Positive Antibody Screen Negative Discharge Plan Discharge Attending physician on discharge: Porsha Pryor Discharging Clinician: Porsha Pryor Anticipated Discharge Date/Time: 03/26/25 02:18 Patient Disposition: Home Activity: may shower and pelvic rest Diet: regular Patient Instructions: Antibiotic Form Patient Language: Citizen Of [place] Stand Alone Forms: General Discharge Information Follow-up/Referrals: Porsha Pryor MD [Physician, CRUISE DIRECTOR] - 6 Weeks Discharge Medications: Continued PNV no.95-ferrous fumarate-FA [] 28 mg iron- 800 mcg tablet 1 tablet PO DAILY vit D3-folic [id number]-[id number]-B12 2,000-800-0.32 unit-mcg-mg tablet PO docosahexaenoic acid-epa Capsule 1 cap PO DAILY Date of admission: 03/23/25 11:46 Primary Care Provider: PHYSICIAN,SUPERVISOR [facility] [employer] Admitting Provider: Porsha Pryor Attending physician on admission: Porsha Pryor Condition: Stable
[2025-03-24] MEDS: fentaNYL CITRATE INJ (*CRX) 100 MCG/2 ML VIAL IV PUSH (02:42)
[2025-03-24] MEDS: BENZOCAINE 20% AER SPR (*SP) 56 GM CAN 1 SPRAY (02:42)
[2025-03-24] MEDS: OXYTOCIN 30 UNITS/NS 500 ML 30 UNITS/500 ML BAG 125 UNITS IV CONT (02:43)
[2025-03-24] MEDS: WITCH HAZEL 40 PADS 1 PAD (02:43)
[2025-03-24] MEDS: ACETAMINOPHEN 325 MG TABLET 650 MG PO ×3 (03:09→18:56)
[2025-03-24] MEDS: HYDROcodone/acetaminophen (*CRX) 10-325 MG TABLET 1 TAB PO (03:24)
--- NOTE | 2025-03-24 04:26 | S_PTH ---
PATIENT: Hyacinth Dnet LOC: [facility] U#:[id number] AGE/SX: 29/F ROOM: 285 RE03/23/[address]: Porsha Pryor MD : 1995 BED: 00 DIS: 03/25/2025 SPEC #: [id number] RECD: 03/24/25 08:44 STATUS: GILSON RELindy #: [id number] BERENICE: 03/24/25 04:[address]: Porsha Pryor DEPT: [facility] Surgical RECD BY: Alea Radford MLT, ([facility]) ENTERED: 03/24/25 08:44 SP TYPE: Surgical OTHR DR: SCHOOL PSYCHOMETRIST PHYSICIAN Tissues: A - Placenta Procedures: Hematoxylin and Eosin Stain Gross and Microscopic Level 5
--- NOTE | 2025-03-24 04:55 | OBPPTRN ---
Patient transferred to post room #285 via wheelchair. Support person present. Oriented to unit, room, information board, rooming in, admission packet and security measures. Patient verbalizes understanding.
[2025-03-24] MEDS: IBUPROFEN 600 MG TABLET PO ×3 (06:59→18:56)
--- NOTE | 2025-03-24 08:45 | PC.NURSE ---
Introductions were made, then consulted with patient to assess needs related to . Discussed with mother that she has been in too much pain to breastfeed and that bottle feeding with formula is going well. She is made aware that the sooner she starts stimulating her breasts, the better milk supply she will have. She knows that a hospital pump can be provided to her if desired. Resources provided for inpatient and outpatient services with the feeding sheet, mom/baby guide and name written on the communication board. Mother voiced understanding of information and will call if there is a request for assistance. Reported to the Primary RN.
[2025-03-24] MEDS: HYDROcodone/acetaminophen (*CRX) 5-325 MG TABLET 1 TAB PO ×2 (09:15→16:45)
--- NOTE | 2025-03-24 14:15 | PC.NURSE ---
RN notified Dr Pryor of patients continuing complaint of pain that is not being made manageable using motrin and tylenol. Patient continues to rate pain at a 6. Dr Pryor ordered [place] 5/325 PRN q6h to be used sparingly for pain.
[2025-03-25 00:10] VITALS: BP 105/67; PULSE 83; RESP 15; TEMP 36.5; O2SAT 100
[2025-03-25] MEDS: ACETAMINOPHEN 325 MG TABLET 650 MG PO ×2 (00:24→08:27)
[2025-03-25] MEDS: IBUPROFEN 600 MG TABLET PO ×2 (00:24→08:26)
[2025-03-25 05:36] LABS: Hematocrit 30.7 % (37.0-47.0); Hemoglobin 10.1 g/dL (12.0-15.0)
--- NOTE | 2025-03-25 07:42 | P.PNOB_ITS ---
OB - PN: Subj Subjective Date/time seen: 03/25/25 07:42 Patient comments: no complaints and pain well controlled baby status: doing well OB - PN: Obj Data Labs 03/25/25 04:30 Labs: Laboratory Results - last 24 hr 03/25/25 04:30 Hgb 10.1 L Hct 30.7 L OB - PN A/P Plan day: 1 Plan: routine care, discharge home, follow up 6 weeks and other (plans condoms) Time Spent With Patient Time: Total time spent is greater than 50% in coordination of care (as documented) at patient's floor/unit and/or counseling patient: Exam 2 : Bimanual exam- vagina & uterus: other (Uterus firm, nt @U)
[2025-03-25 08:15] VITALS: BP 118/87; PULSE 80; RESP 18; TEMP 36.5; O2SAT 99
[2025-03-25] MEDS: DOCUSATE SODIUM 100 MG CAPSULE PO (08:26)
--- NOTE | 2025-03-25 10:24 | PC.NURSE ---
Introductions were made, communication board updated. Discussed with patient her experience so far. Patient states that she is no longer going to breastfeed.
--- NOTE | 2025-03-25 14:03 | WPDANLDPN2 ---
Anes-Prog Note L&D Date/Time: 03/25/25 14:03 Comfortable throughout: labor and delivery Neuraxial method: epidural Epidural/Spinal procedure site: clean & non-tender Neuro status: Neuro function grossly intact. Cardiovascular status: normal Respiratory status: normal Airway patency: baseline Mental status: baseline Post-Op hydration status: normal Vital Signs: Last Vital Signs Temp 36.5 C 03/25/25 08:15 Pulse 80 03/25/25 08:15 Resp 18 03/25/25 08:15 BP 118/87 03/25/25 08:15 Pulse Ox 99 03/25/25 08:15 O2 Del Method Room Air 03/24/25 19:35 Pain score (VAS): 0 Post-procedural complaints: none Patient feedback: Patient satisfied with anesthetic care.
[2025-03-26 08:27] VITALS: BP 140/87; PULSE 83; RESP 18; TEMP 36.6; O2SAT 100
== END 2025-03-25 16:00 | disposition home or self-care (01) | DRG 807 ==
LOC: ANHLDR 03-24 02:19 → ANHOB2 03-24 05:44
PROVIDERS: Admitting Provider Obstetrics & Gynecology Gynecology; Visit Provider Obstetrics & Gynecology Gynecology
DX: O77.0 Labor and delivery complicated by meconium in amniotic fluid (principal); Z37.0 Single live birth; Z3A.39 39 weeks gestation of pregnancy; O70.1 Second degree perineal laceration during delivery
CPT/HCPCS: 36415; 85014; 85018; 85025; 86593; 86850; 86900; 86901; 88307; A9270; J2405; J2590; J2795; J3010; J7120